=== PATIENT | female | born 1980 | race Native Hawaiian/Other Pacific Islander ===

== ENCOUNTER 2017-09-11 10:05 | Emergency (ER) | payer BC ==
[2017-09-11 10:09] VITALS: BMI 23.8
[2017-09-11 10:10] VITALS: BP 125/80; PULSE 63; RESP 16; TEMP 97.5; O2SAT 100
[2017-09-11] MEDS ORDERED: Sodium Chloride 0.9% 1,000 ML IV STA (10:53)
--- NOTE | 2017-09-11 10:54 | ED PDOC ---
HPI: Abdomen Time Seen by Provider: 09/11/17 10:13 Chief Complaint (Nursing): Abdominal Pain Chief Complaint (Provider): Abdominal Pain History Per: Patient History/Exam Limitations: no limitations Onset/Duration Of Symptoms: Days (x1) Outside of [place] travel?: No Current Symptoms Are (Timing): Still Present Associated Symptoms: Nausea, Diarrhea. denies: Fever, Chills, Vomiting, Back Pain, Chest Pain, Urinary Symptoms Additional Complaint(s): 37 year old female presents to the ED complaining of right mid abdominal pain, onset yesterday. Patient states pain is constant but waxes and wanes and worsens with movement when she laughs. Patient reports of several days of diarrhea prior to onset of symptoms. Patient now states she has nausea. Otherwise: (-) fever, (-) chills, (-) chest pain, (-) radiation, (-) back pain, (-) vomiting, (-) urinary symptoms, (-) vaginal discharge, (-) vaginal bleeding , (-) sick contact, (-) recent travels, (-) other injuries. Past Medical History Reviewed: Historical Data, Nursing Documentation, Vital Signs Vital Signs: Last Vital Signs Temp 97.5 F L 09/11/17 10:09 Pulse 63 09/11/17 10:09 Resp 16 09/11/17 10:09 BP 125/80 09/11/17 10:09 Pulse Ox 100 09/11/17 15:12 - Medical History PMH: No Chronic Diseases - Surgical History Surgical History: No Surg Hx - Family History Family History: States: No Known Family Hx - Allergies Allergies/Adverse Reactions: Allergies Allergy/AdvReac Type Severity Reaction Status Date / Time No Known Allergies Allergy Verified 09/11/17 10:20 Review of Systems ROS Statement: Except As Marked, All Systems Reviewed And Found Negative Constitutional: Negative for: Fever, Chills Cardiovascular: Negative for: Chest Pain Gastrointestinal: Positive for: Nausea, Abdominal Pain (mid abdominal pain ), Diarrhea. Negative for: Vomiting Genitourinary Female: Negative for: Vaginal Discharge, Vaginal Bleeding Musculoskeletal: Negative for: Back Pain Physical Exam - Reviewed Nursing Documentation Reviewed: Yes Vital Signs Reviewed: Yes - Physical Exam Comments: GENERAL APPEARANCE: Patient is comfortable, awake, alert, oriented x 3, in no acute distress. SKIN: Warm, dry; (-) cyanosis. EYES: (-) conjunctival pallor, (-) scleral icterus. ENMT: Mucous membranes moist. NECK: (-) tenderness, (-) stiffness, (-) lymphadenopathy. CHEST AND RESPIRATORY: (-) rales, (-) rhonchi, (-) wheezes; breath sounds equal bilaterally. HEART AND CARDIOVASCULAR: (-) irregularity; (-) murmur, (-) gallop. ABDOMEN AND GI: (-) distention. Bowel sounds active; (+) mild right mid- abdominal tenderness. (-) guarding, (-) rebound, (-) palpable masses, (-) Monzon 's Sign, (-) McBurney's Point, (-) Rovsing, (-) CVA tenderness. EXTREMITIES: (-) deformity, (-) edema, (+) distal pulses. NEURO AND PSYCH: Mental status as above; (-) focal findings. - Laboratory Results Result Diagrams: 09/11/17 11:00 09/11/17 11:00 - ECG O2 Sat by Pulse Oximetry: 100 (RA) Pulse Ox Interpretation: Normal Medical Decision Making Medical Decision Making: Time: 104 Impression: rule out appendicitis, consider colitis, Plan: -- CMP -- Lipase -- ED Urine -- CBC with differentials -- Sodium Chloride 1000 mls/hr -- Pepcid 20 mg IVP -- Zofran 4 mg IVP -- Urine Culture -- IV insertion -- Urinalysis -- Urine Culture On re-evaluation, patient reports improvement of symptoms, denies any abdominal pain at this time. On exam, patient remains AAOx3, in no acute distress. Patient returned from CT, results still pending. Lab results reviewed and discussed with the patient. Patient is now refusing to wait for CT results. States that she no longer wishes to be in the ER and she does not want to wait. Time: 1411 CT results still pending. Patient refuses to wait for CT results, further care, evaluation or treatment in the ER. Patient informed of the reasons for the following and planned treatment, which patient understands, however still refuses. Patient informed of the risk and benefits of treatment. Informed that the risk could include worsening of current conditions, undiagnosed conditions ( appendicitis, colitis, gallbladder infection/stone), disability or even . Patient understands the following risk and the benefits of treatment. Patient has the capacity to make decisions and still refuses treatment by RN, PA and ER MD. Patient encouraged to return to the ER at any time and to follow up with pmd. Scribe Attestation: Documented by Aly Moreno, acting as a scribe for Allyn Pastor PA-C. Provider Scribe Attestation: All medical record entries made by the Scribe were at my direction and personally dictated by me. I have reviewed the chart and agree that the record accurately reflects my personal performance of the history, physical exam, medical decision making, and the department course for this patient. I have also personally directed, reviewed, and agree with the discharge instructions and disposition. Disposition - Clinical Impression Clinical Impression: Abdominal pain - Patient ED Disposition Is Patient to be Admitted: No (Patient left AMA. She refused to wait for CT results.) Counseled Patient/Family Regarding: Studies Performed - Disposition Referrals: FAMILY PROVIDER,NO [Primary Care Provider] - Disposition: Against Medical Advice Disposition Time: 13:50 Condition: UNKNOWN Additional Instructions: Thank you for letting us take care of you today. You were treated for abdominal pain. You are choosing to leave against medical advice. The emergency medical care you received today was directed at your acute symptoms. Return to the Emergency Department if your symptoms worsen, do not improve, if you have any other problems, or if you simply change your mind. Please contact your doctor in 2 days for re-evaluation and follow up. Bring any paperwork you were given at discharge with you along with any medications you are taking to your follow up visit. Our treatment cannot replace ongoing medical care by a primary care provider (PCP) outside of the emergency department. Thank you for allowing the [facility] team to be part of your care today. If you had a CT : A Radiologist will review the ED reading if any change in treatment is needed we will contact you. Instructions: Acute Abdomen (Belly Pain), Leaving Against Medical Advice Forms: [employer] (Nauruan)
[2017-09-11] MEDS ORDERED: Iohexol 240 (50 ml) PO ONE (10:55)
[2017-09-11] MEDS ORDERED: Iohexol 240 (50 ml) ONE (11:03)
[2017-09-11] MEDS ORDERED: Famotidine 20mg/50ml 20 MG/50 ML BAG IVPB ONE (11:04)
[2017-09-11 11:11] LABS: BASO % 0.6 % (0.0-2.0); EOS # 0.1 K/uL (0.0-0.7); EOS % 0.9 % (0.0-4.0); LYMPH # 1.8 K/uL (1.0-4.3); LYMPH % 23.5 % (20.0-40.0); MEAN CELL VOLUME 91.5 fl (81.0-99.0); MEAN CORPUSCULAR HEMOGLOBIN 31.3 pg (27.0-31.0); MEAN CORPUSCULAR HGB CONC 34.1 g/dL (33.0-37.0); MEAN PLATELET VOLUME 9.4 fl (7.2-11.7); MONO # 0.5 K/uL (0.0-0.8); MONO % 6.3 % (0.0-10.0); NEUT # 5.1 K/uL (1.8-7.0); NEUT % 68.7 % (50.0-75.0); NRBC % 0.1 % (0.0-0.0); RBC 4.15 Mil/uL (3.80-5.20); RED CELL DISTRIBUTION WIDTH 11.8 % (11.5-14.5); WHITE BLOOD COUNT 7.5 K/uL (4.8-10.8)
[2017-09-11 11:14] LABS: SQUAMOUS EPITHIAL < 1 /hpf (0-5); URINE BACTERIA RARE (<OCC); URINE BILIRUBIN NEGATIVE (NEGATIVE); URINE BLOOD NEGATIVE (NEGATIVE); URINE CLARITY CLEAR (Clear); URINE COLOR STRAW (YELLOW); URINE GLUCOSE (UA) NEG (Normal); URINE LEUKOCYTE ESTERASE NEG Leu/uL (Negative); URINE PROTEIN NEGATIVE (NEGATIVE); URINE UROBILINOGEN 0.2-1.0 mg/dL (0.2-1.0)
[2017-09-11 11:23] LABS: ALB/GLOB RATIO 1.1 (1.0-2.1); ALT/SGPT 35 U/L (9-52); AST/SGOT 25 U/L (14-36); BLOOD UREA NITROGEN 13 mg/dl (7-17); CALCIUM 9.2 mg/dL (8.4-10.2); GFR AFRICAN-AMERICAN > 60; GFR NON-AFRICAN AMERICAN > 60; LIPASE 83 U/L (23-300)
[2017-09-11] MEDS ORDERED: Iohexol 300 100 ML IJ ONE (13:10)
[2017-09-11] MEDS ORDERED: Sodium Chloride 0.9% 100 ML ONE (13:10)
--- NOTE | 2017-09-11 15:21 | CT ---
PROCEDURE: CT Abdomen and Pelvis with contrast HISTORY: RLQ pain COMPARISON: None. TECHNIQUE: Contrast dose: Radiation dose: Total exam DLP = mGy-cm. This CT exam was performed using one or more of the following dose reduction techniques: Automated exposure control, adjustment of the mA and/or kV according to patient size, and/or use of iterative reconstruction technique. FINDINGS: LOWER THORAX: Unremarkable. LIVER: Unremarkable. No gross lesion or ductal dilatation. GALLBLADDER AND BILE DUCTS: Unremarkable. PANCREAS: Unremarkable. No gross lesion or ductal dilatation. SPLEEN: Unremarkable. ADRENALS: Unremarkable. No mass. KIDNEYS AND URETERS: Unremarkable. No hydronephrosis. No solid mass. VASCULATURE: Unremarkable. No aortic aneurysm. BOWEL: Unremarkable. No obstruction. No gross mural thickening. APPENDIX: Normal appendix. PERITONEUM: Unremarkable. No free fluid. No free air. LYMPH NODES: Unremarkable. No enlarged lymph nodes. BLADDER: Unremarkable. REPRODUCTIVE: Unremarkable. BONES: No acute fracture. OTHER FINDINGS: None. IMPRESSION: Unremarkable contrast enhanced CT of the abdomen and pelvis.
== END 2017-09-11 14:00 | disposition left against medical advice (07) ==
LOC: SUPCPDRO 10:05 → H.ER 10:05
DX: R10.9 Unspecified abdominal pain (principal); R11.0 Nausea; R19.7 Diarrhea, unspecified
CPT/HCPCS: 74177; 80053; 81003; 81025; 83690; 85025; 87086; 96374; 99284; J7040; Q9966; Q9967